=== PATIENT | female | born 1980 | race Caucasian/White ===

== ENCOUNTER 2017-09-22 03:38 | Emergency (ER) | payer OTHER ==
[~2017-09-22] VITALS: Ht 157.5 cm; Wt 51.3 kg
[~2017-09-22 03:38] MED LIST: TOPROL XL100 MG
== END 2017-09-22 09:09 | disposition home or self-care (01) ==
LOC: ER 03:38
DX: R51 Headache (principal)

== ENCOUNTER 2018-04-06 19:58 | Emergency (ER) | payer OTHER ==
[~2018-04-06] VITALS: Ht 157.5 cm; Wt 49.9 kg
== END 2018-04-07 | disposition home or self-care (01) ==
LOC: ER 19:58
DX: K29.70 Gastritis, unspecified, without bleeding (principal); E86.0 Dehydration; F43.9 Reaction to severe stress, unspecified

== ENCOUNTER 2018-12-30 12:29 | Emergency (ER) | payer OTHER ==
[~2018-12-30] VITALS: Ht 157.5 cm; Wt 59.0 kg
[2018-12-30] MEDS ORDERED: ZOMIG5 MG (12:44)
[2018-12-30] MEDS ORDERED: FIORICET (12:45)
== END 2018-12-30 17:00 ==
LOC: ER 12:29
DX: G43.809 Other migraine, not intractable, without status migrainosus (principal)

== ENCOUNTER 2019-02-10 07:05 | Outpatient (CLI) | payer OTHER ==
[~2019-02-10 07:05] MED LIST changes: +FIORICET; +ZOMIG5 MG
== END 2019-02-10 07:18 | disposition home or self-care (01) ==
LOC: SONOGRAMA 07:05 → MAMO-SONO 07:15 → SONOGRAMA 07:18
DX: O26.892 Other specified pregnancy related conditions, second trimester (principal); R10.31 Right lower quadrant pain

== ENCOUNTER 2019-03-22 13:14 | Outpatient (CLI) | payer OTHER | END 2019-03-22 19:06 | disposition home or self-care (01) | LOC: OBS/DEL 13:14 | DX: O21.8 Other vomiting complicating pregnancy (principal) ==

== ENCOUNTER 2019-06-08 12:59 | Outpatient (CLI) | payer OTHER | END 2019-06-08 13:45 | disposition home or self-care (01) | LOC: NST 12:59 | DX: Z34.83 Encounter for supervision of other normal pregnancy, third trimester (principal) ==

== ENCOUNTER 2019-07-06 17:04 | Inpatient (IN) | payer OTHER ==
[~2019-07-06] VITALS: Ht 157.5 cm; Wt 56.7 kg
[2019-07-13] MEDS ORDERED: PRENATAL CAPLE1 EAC1 PO (02:56)
[2019-07-13] MEDS ORDERED: MAXFE CAPLET1 EACH PO (02:56)
== END 2019-07-15 14:23 | disposition home or self-care (01) | DRG 807 ==
LOC: LDR 07-13 02:49 → OB/GYN 07-13 12:32
PROVIDERS: ADMIT Obstetrics & Gynecology
PROC: 10E0XZZ Delivery of Products of Conception, External Approach (ICD-10-PCS; principal; 2019-07-13)
PROC: 4A1HXFZ Monitoring of Products of Conception, Cardiac Rhythm, External Approach (ICD-10-PCS; 2019-07-13)
PROC: 3E033VJ Introduction of Other Hormone into Peripheral Vein, Percutaneous Approach (ICD-10-PCS; 2019-07-13)
DX: O80 Encounter for full-term uncomplicated delivery (principal); Z37.0 Single live birth; Z3A.37 37 weeks gestation of pregnancy

== ENCOUNTER → 2019-12-28 | Emergency (ER) | payer OTHER ==
[~2019-12-28] VITALS: Ht 157.5 cm; Wt 49.9 kg
[~2019-12-28] MED LIST changes: +INTESTINEX680 M2 PO; +KETO10TA2 PO; +MAXFE CAPLET1 EACH PO; +ONDANSETRON ODT4 MG PO; +PRENATAL CAPLE1 EAC1 PO; +ZITHROMAX500 MG PO; +ZOMIG2.5 MG
== END | disposition home or self-care (01) ==
LOC: ER 12:29
DX: G43.119 Migraine with aura, intractable, without status migrainosus (principal)

== ENCOUNTER → 2020-12-10 | Emergency (ER) | payer OTHER ==
[~2020-12-10] VITALS: Ht 157.5 cm; Wt 51.3 kg
[~2020-12-10] MED LIST changes: +BUTALB-ACETAMI1 EAC2 PO; +PRILOSEC OTC20 MG
== END | disposition home or self-care (01) ==
LOC: ER 22:09
DX: R51.9 Headache, unspecified (principal)

== ENCOUNTER 2023-07-12 01:43 | Emergency (ER) | payer OTHER ==
[~2023-07-12] VITALS: Ht 152.4 cm; Wt 56.7 kg
[2023-07-12] MEDS ORDERED: FAMOTIDINE/PF 20 MG/2 ML VIAL IV PUSH STA (03:28)
[2023-07-12] MEDS ORDERED: ONDANSETRON HCL 2 MG/ML VIAL IV STA (03:29)
[2023-07-12] MEDS ORDERED: 0.9 % SODIUM CHLORIDE 1,000 ML IV ONE (03:30)
[2023-07-12 04:28] LABS: ALBUMIN 3.8 gm/dL (3.4-5.0); BILIRUBIN TOTAL 0.11 mg/dL (0.3-1.2); CALCIUM 9.1 mg/dL (8.5-10.1); CREATININE SERUM 0.73 mg/dL (0.55-1.02); GFR 87.01; GLOBULINA 3.7 G/DL (2.4-3.5); POTASSIUM 3.98 mEq/L (3.5-5.1); TOTAL PROTEIN 7.5 gm/dL (6.4-8.2)
[2023-07-12 04:37] LABS: HEMATOCRIT 40.2 % (36.0-45.00); HEMOGLOBIN 12.9 g/dL (12.0-15.00); MEAN CELL VOLUME 85.1 fL (80.00-100.00); MEAN CORPUSCULAR HEMOGLOBIN 27.3 pg (27.00-32.0); MEAN CORPUSCULAR HGB CONC 32.1 g/dl (32.0-36.0); PLATELET COUNT 351 K/uL (150-450); RED BLOOD COUNT 4.73 M/uL (4.00-6.00); RED CELL DISTRIBUTION WIDTH 12.6 % (11.5-14.5)
[2023-07-12 05:47] LABS: URINE APPEARANCE Clear; URINE BILIRRUBIN Negative (NEGATIVE); URINE BLOOD Negative; URINE COLOR Yellow; URINE GLUCOSE Negative (NEGATIVE); URINE LEUKOCYTE Negative; URINE NITRATE Negative; URINE PROTEIN Negative (NEGATIVE); URINE UROBILINOGEN 0.2 E.U./dl
[2023-07-12 05:51] LABS: URINE BACTERIA 83.1 uL (0.0-1933); URINE EPITHELIAL CELLS 3.6 uL (0.0-38.8)
[2023-07-12 06:25] LABS: URINE RBC 1.5 uL (0.0-20.8)
[2023-07-12] MEDS ORDERED: MECLIZINE HCL 25 MG TABLET PO ONE (09:00)
[2023-07-12] MEDS ORDERED: INTESTINEX680 M1 PO (09:40)
[2023-07-12] MEDS ORDERED: PEPCID AC20 MG PO (09:40)
== END 2023-07-12 09:51 | disposition home or self-care (01) ==
LOC: ER 01:43
PROVIDERS: General Practice
DX: R19.7 Diarrhea, unspecified (principal); B96.0 Mycoplasma pneumoniae [M. pneumoniae] as the cause of diseases classified elsewhere

== ENCOUNTER → 2024-10-12 | Emergency (ER) | payer OTHER ==
[~2024-10-12] VITALS: Ht 157.5 cm; Wt 51.3 kg
[~2024-10-12] MED LIST changes: +0.9 % SODIUM CHLORIDE 1,000 ML IV STA; +ACETAMINOPHEN 500 MG GEL..CAP PO ONE; +ACETAMINOPHEN 500 MG GEL..CAP PO STA; +BARIUM SULFATE 450 ML ORAL.SUSP PO ONE; +CEFTRIAXONE SODIUM 1,000 MG VIAL IV STA; +CEFTRIAXONE SODIUM 1,000 MG VIAL ONE; +CETIRIZINE HCL 5 MG/5 ML ML PO STA; +CETIRIZINE HCL 5MG/5ML BLIST.PACK PO ONE; +CIPROFLOXACIN IN 5 % DEXTROSE 400 MG/200 ML PIGGYBAG IV ONE; +CIPROFLOXACIN IN 5 % DEXTROSE 400 MG/200 ML PIGGYBAG IV STA; +DEXAMETHASONE SODIUM PHOSPHATE 4 MG/ML VIAL IM STA; +DEXAMETHASONE SODIUM PHOSPHATE 4 MG/ML VIAL ONE; +FAMOTIDINE/PF 20 MG/2 ML VIAL IV STA; +FAMOTIDINE/PF 20 MG/2 ML VIAL ONE; +INTESTINEX680 M1 PO; +KETOROLAC TROMETHAMINE 15 MG VIAL IM STA; +KETOROLAC TROMETHAMINE 30 MG VIAL ONE; +NALOXONE HCL 0.4 MG/ML AMPUL IV STA; +NALOXONE HCL 0.4 MG/ML AMPUL ONE; +PEPCID AC20 MG PO; +WELLBUTRIN SR150 MG PO
[2024-10-12 10:34] VITALS: BP 138/91; O2SAT 99
[2024-10-12 11:55] LABS: BASO % 0.4 % (0.1-1.2); EOS # 0.13 (0.04-0.54); EOS % 1.7 % (0.7-7.0); HEMATOCRIT 41.8 % (34.1-44.9); HEMOGLOBIN 13.7 g/dL (11.2-15.7); LYMPH # 2.25 (1.18-3.74); LYMPH % 28.7 % (19.3-53.1); MEAN CORPUSCULAR HEMOGLOBIN 28.8 pg (25.6-32.2); MONO % 5.1 % (4.7-12.5); NEUT # 5.01 (1.56-6.13); NEUT % 63.8 % (34.0-71.1); PLATELET COUNT 433 K/uL (163-369); RED BLOOD COUNT 4.76 M/uL (3.93-5.22); RED CELL DISTRIBUTION WIDTH 13.5 % (11.6-14.4)
[2024-10-12 11:59] LABS: ERYTHROCYTE SEDIMENTATION RATE 13 mm/hr (0-20)
[2024-10-12 12:13] LABS: COVID-19 AG NEGATIVE (NEGATIVE)
[2024-10-12 12:27] LABS: ALBUMIN 4.3 gm/dL (3.4-5.0); BILIRUBIN TOTAL 0.38 mg/dL (0.3-1.2); CALCIUM 8.8 mg/dL (8.5-10.1); CREATININE SERUM 0.71 mg/dL (0.55-1.02); GFR 89.02; GLOBULINA 4.1 G/DL (2.4-3.5); POTASSIUM 3.66 mEq/L (3.5-5.1); TOTAL PROTEIN 8.4 gm/dL (6.4-8.2); TSH 2.16 uIU/mL (0.358-3.74)
[2024-10-12 12:30] LABS: URINE APPEARANCE Cloudy; URINE BILIRRUBIN Negative (NEGATIVE); URINE BLOOD Trace; URINE COLOR Yellow; URINE GLUCOSE Negative (NEGATIVE); URINE KETONE 15 (NEGATIVE); URINE LEUKOCYTE Small; URINE NITRATE Negative; URINE PROTEIN Trace (NEGATIVE); URINE UROBILINOGEN 0.2 E.U./dl
[2024-10-12 12:34] LABS: URINE CAST 1.61 uL (0.0-1.40); URINE EPITHELIAL CELLS 47.6 uL (0.0-38.8); URINE RBC 10.6 uL (0.0-20.8); URINE WBC 226.2 uL (0.0-23.2)
[2024-10-12 12:50] LABS: URINE BACTERIA > 9821.5 uL (0.0-1933)
[2024-10-12 12:51] LABS: URINE CRYSTALS FEW /HPF; URINE MUCUS HEAVY
[2024-10-12 15:04] LABS: COCAINE NEGATIVE (NEGATIVE); METHADONE NEGATIVE (NEGATIVE); OPIATES NEGATIVE (NEGATIVE); THC ( Cannabinoids) NEGATIVE (NEGATIVE)
== END | disposition left against medical advice (07) ==
LOC: ER 10:04
PROVIDERS: Emergency Medicine; General Practice
DX: B34.9 Viral infection, unspecified (principal); F32.89 Other specified depressive episodes; G43.809 Other migraine, not intractable, without status migrainosus; I10 Essential (primary) hypertension; M54.50 Low back pain, unspecified; M25.551 Pain in right hip; Z20.822 Contact with and (suspected) exposure to COVID-19; K59.00 Constipation, unspecified
CPT/HCPCS: 36415; 74177; Q9965